=== PATIENT | female | born 1945 | race Caucasian/White ===

== ENCOUNTER 2018-02-14 11:42 | Outpatient (CLI) | payer MEDICARE ==
[2018-02-14 13:12] LABS: #Basophils 0.1 thou/uL (0.0-0.2); #Eosinphils 0.2 thou/uL (0.0-0.7); #Lymphocytes 1.3 thou/uL (1.20-3.40); #Monocytes 0.4 thou/uL (0.11-0.59); #Neutrophils 4.3 thou/uL (1.40-6.50); %Basophils 0.9 % (0.0-1.0); %Eosinophils 3.6 % (0.0-10.0); %Lymphocytes 21.1 % (21.0-51.0); %Neutrophils 67.5 % (42.0-75.0); Hemoglobin 14.2 g/dL (12.0-16.0); Mean Corpuscular HGB CONC 33.4 g/dL (32.0-36.0); Mean Corpuscular Hemoglobin 32.2 pg (27.0-31.0); Mean Corpuscular Volume 96.5 fL (78.0-98.0); Platelet Count 295 thou/uL (130-400); RBC Distribution Width 11.7 % (11.5-14.5); White Blood Cell (WBC) Count 6.4 thou/uL (4.8-10.8)
[2018-02-14 13:30] LABS: Anion Gap 13 mmol/L (10-20); BUN (Urea Nitrogen) 22 mg/dL (9.8-20.1); Calc. Creatinine Clearance 0 mL/min (70-130); Calcium 9.6 mg/dL (7.8-10.44); Carbon Dioxide 26 mmol/L (23-31); Chloride 104 mmol/L (98-107); Estimated GFR-MDRD 43; Glucose 96 mg/dL (83-110); Potassium 4.2 mmol/L (3.5-5.1); Sodium 139 mmol/L (136-145)
== END 2018-02-14 11:43 | disposition home or self-care (01) ==
LOC: LABBT 11:42
PROVIDERS: ATTEND Surgery
DX: Z01.812 Encounter for preprocedural laboratory examination (principal); K62.1 Rectal polyp; L98.9 Disorder of the skin and subcutaneous tissue, unspecified
CPT/HCPCS: 80048; 85025

== ENCOUNTER 2018-02-16 06:05 | Day surgery (SDC) | payer MEDICARE ==
[2018-02-14 11:55] VITALS: BMI 26.0
[2018-02-16] MEDS ORDERED: Bupivacaine/Epinephrine 0.25% 30 ML VIAL ONE (06:56)
[2018-02-16] MEDS ORDERED: Lidocaine 2% PF Inj 2 ML VIAL ONE (06:56)
[2018-02-16] MEDS ORDERED: Fentanyl 100 MCG/2 ML VIAL ONE (07:15)
[2018-02-16] MEDS ORDERED: Sodium Chloride 0.9% 100 ML ONE ×2 (07:41→07:46)
[2018-02-16] MEDS ORDERED: cefOXitin 2 GM VIAL ONE ×2 (07:41→07:46)
[2018-02-16] MEDS ORDERED: Midazolam HCl 2 mg/2 ml Vial ONE (08:01)
[2018-02-16] MEDS ORDERED: Bacitracin Zinc Ointment 30 gm TUBE ONE (08:37)
[2018-02-16] MEDS ORDERED: Lidocaine 2% Jelly 5 ML TUBE ONE (09:17)
[2018-02-16] MEDS ORDERED: PROPOFOL 200 MG/20 ML VIAL ONE (10:28)
[2018-02-16] MEDS ORDERED: ePHEDrine/0.9% NaCl/PF SYRINGE 50 mg/10 ml ONE (10:28)
[2018-02-16] MEDS ORDERED: Lidocaine 1% PF 5 ML VIAL ONE (10:28)
[2018-02-16] MEDS ORDERED: Dexamethasone 20 MG/5 ML VIAL ONE (10:28)
[2018-02-16] MEDS ORDERED: Ondansetron HCl/PF 4 MG/2 ML Vial ONE (10:28)
--- NOTE | 2018-02-22 18:36 | PDOC.OP ---
Operative Note - Operative Note Operative Note: PROCEDURE: Exam under anesthesia and excision of anterior anorectal polyp, excision of right calf lesion DATE OF PROCEDURE: 02/16/2018 SURGEON: Yocasta Shah M.D. PREOPERATIVE DIAGNOSES: Skin lesions, polypoid lesion at anorectal junction POSTOPERATIVE DIAGNOSIS: Skin lesions, polypoid lesion at anorectal junction HISTORY: Patient with prolapsing polypoid lesion from the anterior anorectal junction. It is felt likely to be a prolapsing polyp, although a large hemorrhoidal tag cannot be excluded. Due to its large size and origin near the dentate line, excision in the operating room was recommended. The patient also has a skin lesion on her right calf which she would like excised. This has grown larger over the past month and she now has similar appearing lesions appearing on other areas of her body. It has not responded to corticosteroid or antifungal therapy. PROCEDURE IN DETAIL: After informed consent was obtained and appropriate antibiotics administered the patient was taken to the operating room she was placed in supine position and anesthesia was administered. She was prepped and draped in standard sterile fashion on the right extremity and local anesthesia infused to the skin and subcutaneous tissues surrounding the right calf lesion. Elliptical longitudinally oriented incision was made and dissection carried down to the subcutaneous tissues. The wound was irrigated and hemostasis obtained using Bovie electrocautery. The skin was closed with vertical mattress nylon sutures and bacitracin and gauze placed. Attention was then turned to the anal rectal lesion. The patient was placed in lithotomy position and the anal rectal area prepped and draped in standard sterile fashion. Four-quadrant anoscopy was carried out. The patient was noted to have a large pedunculated prolapsing polypoid lesion from the anterior dentate line, as well as some vaginal prolapse into the rectal area. She had some moderate internal hemorrhoids but no other significant lesions. The anterior polypoid lesion was grasped and local anesthesia infused to the tissues at its base. It was excised at its base using electrocautery and the mucosa reapproximated with figure-of- eight absorbable sutures. Hemostasis was verified. Additional local anesthesia was infused circumferentially for a field block. Hemostasis was verified and a Gelfoam plug placed to the wound. An ABD pad was placed externally and secured. The patient was taken to recovery in good condition. Estimated blood loss was minimal. Specimens are right calf skin lesion and anal rectal polyp.
--- NOTE | 2018-02-26 07:37 | PQF ---
[facility] POST DISCHARGE CLINICAL DOCUMENTATION IMPROVEMENT CLARIFICATION FORM l Todays Date: 02/26/18 l Patients Name MANI QUINONEZ l l Admit Date 02/16/18 l Disch Date 02/16/18 [employer] Analyst Name Gabe Mayorga Email: [email or web address] Cell: [phone] Present Clinical Indicators - Signs / Symptoms Results and Location in Medical Record [ ] Documentation of: [ ] [ ] Documentation of: [ ] [ ] Documentation of: [ ] [ ] Documentation of: [ ] [ ] Risks [ ] [ ] [ ] Treatment [ ] R CALF SKIN EXCISION QUERY FOR SIZE OF EXCISED SKIN LESION WITH EXCISED MARGINS [ ] [ ] To be completed by Physician: DR. SABRINA RUSS The documentation in this patients record requires clarification to ensure coding compliance and accuracy. Check the appropriate box and include in your discharge summary. [ ] [ ] [ ] [ ] Please check this box if this does not apply to this patient [ ] Unable to determine [ ] Other diagnosis: Review the following information and exercise your independent professional judgment in responding to the clarification. Based upon the clinical findings, risk factors, and treatment, please clarify if you are treating one of the above probable or suspected diagnoses. Physician Signature: Date Time OSMELD
== END 2018-02-16 12:00 | disposition home or self-care (01) ==
LOC: SDC 06:05
PROVIDERS: ATTEND Surgery
PROC: 0DBP7ZX Excision of Rectum, Via Natural or Artificial Opening, Diagnostic (ICD-10-PCS; principal; 2018-02-16)
PROC: 0HBKXZZ Excision of Right Lower Leg Skin, External Approach (ICD-10-PCS; 2018-02-16)
DX: K62.1 Rectal polyp (principal); L30.8 Other specified dermatitis; K64.8 Other hemorrhoids; N81.89 Other female genital prolapse; E03.9 Hypothyroidism, unspecified; K58.9 Irritable bowel syndrome, unspecified; F41.9 Anxiety disorder, unspecified; Z88.1 Allergy status to other antibiotic agents; Z88.8 Allergy status to other drugs, medicaments and biological substances; Z79.899 Other long term (current) drug therapy; Z87.891 Personal history of nicotine dependence; Z79.818 Long term (current) use of other agents affecting estrogen receptors and estrogen levels
CPT/HCPCS: 88305; J0694; J1100; J2001; J2250; J2405; J2704; J3010; J7050

== ENCOUNTER 2021-03-04 13:23 | Outpatient (CLI) | payer MEDICARE | END 2021-03-04 13:24 | disposition home or self-care (01) | LOC: BICMAMMO 13:23 | PROVIDERS: ATTEND Family Medicine | DX: Z12.31 Encounter for screening mammogram for malignant neoplasm of breast (principal) | CPT/HCPCS: 77063; 77067 ==

== ENCOUNTER 2023-09-22 14:01 | Outpatient (CLI) | payer MEDICARE | END 2023-09-22 14:02 | disposition home or self-care (01) | LOC: BICCT 14:01 | PROVIDERS: ATTEND Psychiatry & Neurology Neurology | DX: R56.9 Unspecified convulsions (principal) | CPT/HCPCS: 70450 ==

== ENCOUNTER 2023-11-07 10:38 | Outpatient (CLI) | payer MEDICARE | END 2023-11-07 10:39 | disposition home or self-care (01) | LOC: BICMAMMO 10:38 | PROVIDERS: ATTEND Family Medicine | DX: Z12.31 Encounter for screening mammogram for malignant neoplasm of breast (principal) | CPT/HCPCS: 77063; 77067 ==